=== PATIENT | female | born 1990 | race Caucasian/White ===

== ENCOUNTER 2022-12-02 14:59 | Emergency (ER) | payer OTHER ==
[~2022-12-02] VITALS: Ht 172.7 cm; Wt 68.2 kg
[2022-12-02 16:30] VITALS: BP 155/79
[2022-12-02] MEDS ORDERED: METH-1164 PO (16:36)
== END 2022-12-02 17:14 | disposition home or self-care (01) ==
LOC: M ED 16:14
DX: S00.03XA Contusion of scalp, initial encounter (principal); S60.512A Abrasion of left hand, initial encounter; S16.1XXA Strain of muscle, fascia and tendon at neck level, initial encounter; V48.5XXA Car driver injured in noncollision transport accident in traffic accident, initial encounter; Z91.030 Bee allergy status